=== PATIENT | male | born 1955 | race Caucasian/White ===

== ENCOUNTER → 2016-06-01 | Outpatient (CLI) | payer OTHER ==
--- NOTE | 2016-06-01 17:14 | NOWCEV ---
[facility] EVALUATION AND LETTER OF JUSTIFICATION Patient Name: GAEL DIANE Physician: DO Barbara Francois Date: 06/01/16 Therapist: Lelia Bal MS,PT Date of : 1955 MR#: [id number] Contact: Subscriber: GAEL DIANE Primary Ins: [employer] Subscriber #: [id number] EVALUATION FINDINGS Medical history - Gael is a 61y/o male with current dx of Spinal Muscular Atrophy (SMA). He reports that his symptoms began over 5 years ago, and he has had progressive decline since that time. He has been dependent on motorized scooters and lifts for the past 5 years. Due to his decline, Gael's current power scooter is no longer meeting his needs. He was referred to this clinic by his doctor to have recommendations made for the most medically appropriate PWC to provide safe, independent mobility in the home. Functional Mobility - Gael is unable to stand or ambulate, even with use of an AD due to severe muscle atrophy. He has been utilizing a power scooter for the past 5 years, but he is beginning to have difficulty moving his hands on to the tiller and he fatigues sitting the non-supportive seat, which requires that he lay down and perform extra transfers throughout the day. He is dependent on either a mechanical lift or manual assistance from a caregiver to complete all transfers, as he is unable to participate due to his severe atrophy. To perform sit to sup Gael requires max A to transition his legs onto the bed, and requires max A for this trunk when transitioning from sup to sit. He is able to roll L and R in bed with use of momentum strategies. Head/Trunk control - Gael's head control is WFL, but fatigues the longer he is seated, causing him to sit with a forward head. His trunk control is impaired. He can sit unsupported for very short periods of time, but requires bracing of his arms on his legs for stability and balance. Motor involvement - Gael presents with severe muscle atrophy from his SMA. MMT is as followed: ............. Due to this significant weakness, Gael utilizes significant compensatory strategies for mobility which ultimately cause increased pain in his neck, shoulder and back. Posture - Gael sits with a posterior pelvic tilt and slouched posture due to muscle atrophy and fatigue. His R scapula is winged greater than his L. His pelvis is relatively level. His hands rest in his lap as he is unable to abduct or externally rotate his UEs due to weakness. Skin Sensation - Gael's sensation is intact to light touch. He reports no history of skin breakdown. He is unable to perform pressure relief when in sitting due to severe weakness and postural control. He has swelling in B ankles, which he reports is exacerbated in the summer time. Gael does have continuous pain in his L neck, scapula and back due to consistent use of compensatory strategies for perform mobility, and to maintain postural control when sitting in his scooter. Endurance - Gael's endurance is severely limited. He reports that he is able to be up in his scooter for 2 hour intervals prior to fatigue and having to transfer to lay down. ADLs - Gael requires full assistance from caregivers to complete all ADLs such as dressing, bathing and toileting due to his limited strength, mobility and motor control. He utilizes many automated appliance and devices throughout his home which allow him to perform tasks such as opening doors and windows. Cognitive/Social - Gael is fully cognizant and able to make his own medical decisions. He is an application security engineer. He has assistance every morning and evening to complete ADLs and mobility. He lives in a 2 story home with a ramp to enter. He utilizes a lift and a second scooter to access the second floor of the home when needed. Current wheelchair - Gael currently utilizes a scooter for all mobility within his home. He purchased the scooter out of pocket 5 years ago. The scooters are no longer appropriate for Gael as he has difficulty moving his hands onto the tiller and maintaining them there to drive. The seat on the scooter does not provide him with enough postural control/support and he fatigues quickly, causing him to have to spend increased time laying down, and having to perform additional, unnecessary transfers throughout eh day. As Gael's SMA progresses, he will no longer be able to utilize his scooter for mobility. MEDICAL and FUNCTIONAL NEED/OBJECTIVES * To procure a PWC and seating system to allow Gael to maintain independent mobility within his home. PRIMARY FUNCTIONAL LIMITATION (G Code) * Mobility CURRENT STATUS OF PRIMARY FUNCTIONAL LIMITATION (Severity Modifier) * At least 60 percent but less than 80 percent impaired, limited or restricted ( CL) GOAL STATUS OF PRIMARY FUNCTIONAL LIMITATION (Severity Modifier) * At least 60 percent but less than 80 percent impaired, limited or restricted ( CL) DISCHARGE STATUS OF PRIMARY FUNCTIONAL LIMITATION (Severity Modifier) * At least 60 percent but less than 80 percent impaired, limited or restricted ( CL) EQUIPMENT RECOMMENDATIONS AND JUSTIFICATIONS The following recommendations are believed to be the most cost effective way to meet the patients medical and functional needs. * Group 3 power base: * [id number]: * Power Recline: * Power elevating leg rests: * Midline joystick mount: * R-net electronics: Needed to support and control the [id number], power recline and elevating legs rests on Gael's chair. * Posterior positioning backrest: * Skin protection positioning cushion: * Elbow stops: * Transit tie downs: * Batteries: * Headrest with mounting hardware: * height adjustable arm rests: These recommendations are based on the likelihood that GAEL Brady will require the use of a wheelchair for mobility for the rest of his life. If you have any questions or concerns regarding the stated recommendations, please feel free to contact the therapist at . Thank you for your cooperation in obtaining the necessary equipment for this patient. TIMOTHY Rogel
== END ==
PROVIDERS: ATTEND Family Medicine
DX: G12.8 Other spinal muscular atrophies and related syndromes (principal); Z99.3 Dependence on wheelchair
CPT/HCPCS: 97163; G8978; G8979; G8980